=== PATIENT | male | born 1945 | race Two or more races ===

== ENCOUNTER → 2016-09-14 | Outpatient (CLI) | payer MEDICARE, OTHER ==
[~2016-09-14] MED LIST: ADVIL200 MG PO; AUGMENTIN250 MG; AUGMENTIN875 MG PO; CIPRO500 MG PO; COMPAZINE10 MG PO; COUMADIN ** IA3 MG PO; COUMADIN **IA1 MG PO; CREON DR 24,001 EACH PO; FISH OIL 500 M1 EAC2 PO; FLAGYL500 MG PO; FLOMAX0.4 MG PO; FLORASTOR250 MG PO; GLUCOPHAGE1000 MG PO; GLUCOPHAGE500 MG PO; HUMALOG MI100 UNIT/1 SUB-Q; IMODIUM LIQ1 MG/5 ML PO; LACTINEX (FLORA1 TAB PO; LANTUS (IN100 UNIT/M SUB-Q; LANTUS SOL100 UNIT/1 SUB-Q; LEVEMIR FL100 UNIT/1 SUB-Q; LEVEMIR100 UNIT/1 SUB-Q; LOVENOX 6060 MG/0.6 SUB-Q; MULTI VITAMIN1 EACH PO; NORCO 5-325 TA1 EACH PO; NOVOLOG100 UNIT/M SUB-Q; OMEPRAZOLE40 MG PO; PERCOCET 10-321 EACH PO; PRILOSEC20 MG PO; PROBIOTIC1 EAC4 PO; REMERON15 MG PO; TYLENOL EXTRA500 MG PO; TYLENOL325 MG PO
[2016-09-14 11:08] LABS: INR - (THERAPEUTIC) 4.1 (0.9-1.1); PROTIME 48.8 SECONDS (9.6-11.1)
== END | disposition disaster alternative care site (69) ==
LOC: LGSMG 10:51
PROVIDERS: Student in an Organized Health Care Education/Training Program
DX: I81 Portal vein thrombosis (principal)

== ENCOUNTER → 2016-10-19 | Outpatient (CLI) | payer MEDICARE, OTHER ==
[2016-10-19 14:25] LABS: PROTIME 65.8 SECONDS (9.6-11.1)
[2016-10-19 14:29] LABS: INR - (THERAPEUTIC) 5.4 (0.9-1.1)
== END | disposition disaster alternative care site (69) ==
LOC: LGSMG 14:08
PROVIDERS: Student in an Organized Health Care Education/Training Program
DX: I81 Portal vein thrombosis (principal)

== ENCOUNTER → 2016-11-23 | Outpatient (CLI) | payer MEDICARE, OTHER ==
[2016-11-23 10:50] LABS: INR - (THERAPEUTIC) 4.98 (0.92-1.07); PROTIME 53.1 SECONDS (9.8-11.4)
== END ==
LOC: LGSMG 10:27
PROVIDERS: Student in an Organized Health Care Education/Training Program
DX: I71.4 Abdominal aortic aneurysm, without rupture (principal); Z79.01 Long term (current) use of anticoagulants

== ENCOUNTER → 2017-01-04 | Outpatient (CLI) | payer MEDICARE, OTHER ==
[2017-01-04 09:28] LABS: INR - (THERAPEUTIC) 4.16 (0.92-1.07); PROTIME 44.3 SECONDS (9.8-11.4)
== END ==
LOC: LGSMG 09:17
PROVIDERS: Student in an Organized Health Care Education/Training Program
DX: Z79.01 Long term (current) use of anticoagulants (principal); C25.9 Malignant neoplasm of pancreas, unspecified; I25.10 Atherosclerotic heart disease of native coronary artery without angina pectoris; J44.9 Chronic obstructive pulmonary disease, unspecified; I71.4 Abdominal aortic aneurysm, without rupture; K76.0 Fatty (change of) liver, not elsewhere classified; H26.9 Unspecified cataract; M19.91 Primary osteoarthritis, unspecified site; M47.9 Spondylosis, unspecified

== ENCOUNTER → 2017-01-04 | Outpatient (CLI) | payer MEDICARE, OTHER | END | disposition disaster alternative care site (69) | LOC: GRAD 14:19 | DX: H81.399 Other peripheral vertigo, unspecified ear (principal); K86.81 Exocrine pancreatic insufficiency; I71.4 Abdominal aortic aneurysm, without rupture; R55 Syncope and collapse; Z98.890 Other specified postprocedural states | CPT/HCPCS: Q9967 ==